=== PATIENT | male | born 1985 | race Caucasian/White ===

== ENCOUNTER → 2020-04-25 | Outpatient (CLI) | payer BC, OTHER ==
--- NOTE | 2020-04-25 11:16 | MR ---
EXAMINATION TYPE: MR shoulder LT wo con DATE OF EXAM: 04/25/2020 COMPARISON: X-ray from outside institution 04/20/2020 HISTORY: Pain in the left shoulder TECHNIQUE: Multiplanar, multisequence imaging of the left shoulder is performed without contrast. FINDINGS: There is diffuse edema involving the humerus with findings compatible with a fracture of th e greater tuberosity with mild displacement. Bicipital tendon remains well situated in the bicipital groove. Hypertrophic arthropathy of the AC joint with mild impingement of the supraspinatus muscle. Visualized rotator cuff demonstrates intrasubstance signal at the insertion of the posterior fibers o f the supraspinatus and anterior fibers of the infraspinatus compatible with tendinosis. No definite through thickness tear. Bursal scuffing along the insertion of the supraspinatus tendon noted. Superior labrum has a normal appearance. There is truncation of the inferior labrum and mild thickeni ng of the inferior glenohumeral ligament. No evidence of tear. IMPRESSION: 1. Mildly displaced greater tuberosity fracture with extensive marrow edema. 2. There is thickening of the inferior glenohumeral ligament and truncation of the inferior labrum. L igamentous sprain without evidence of definite tear and labral injury are suspected. 3. Tendinosis at the insertion of the infraspinatus and supraspinatus tendons with no evidence of thr ough thickness tear or retraction. Bursal scuffing along the posterior fibers of the insertion of the supraspinatus tendon noted.
== END | disposition home or self-care (01) ==
LOC: RADMRIMAIN 10:23
PROVIDERS: ATTEND Orthopaedic Surgery
DX: S42.92XA Fracture of left shoulder girdle, part unspecified, initial encounter for closed fracture (principal); S43.402A Unspecified sprain of left shoulder joint, initial encounter; M67.814 Other specified disorders of tendon, left shoulder; M24.212 Disorder of ligament, left shoulder